=== PATIENT | male | born 1995 | race Caucasian/White ===

== ENCOUNTER 2020-04-20 23:16 | Emergency (ER) | payer OTHER ==
[~2020-04-20] VITALS: Ht 180.3 cm; Wt 86.4 kg
[2020-04-20 23:19] VITALS: BP 156/89; PULSE 91; TEMP 97.8
== END 2020-04-21 00:45 | disposition home or self-care (01) ==
LOC: COL.ER 23:16
DX: S06.0X0A Concussion without loss of consciousness, initial encounter (principal); R40.2412 Glasgow coma scale score 13-15, at arrival to emergency department; W22.8XXA Striking against or struck by other objects, initial encounter